=== PATIENT | female | born 1985 | race Caucasian/White ===

== ENCOUNTER 2020-12-02 16:58 | Inpatient (IN) | payer OTHER ==
[~2020-12-02] VITALS: Ht 175.3 cm; Wt 73.5 kg
[2020-12-02 17:34] LABS: HEMOGLOBIN 11.5 gm/dl (12.3-15.3); RED BLOOD COUNT 3.71 M/UL (4.00-5.10); WHITE BLOOD COUNT 7.8 K/UL (4.5-11.0)
[2020-12-03] MEDS ORDERED: SUBUTEX 8 MG TAB8 MG GT (07:42)
[2020-12-03] MEDS ORDERED: IBUPROFEN600 MG PO (12:22)
[2020-12-03] MEDS ORDERED: COLACE 100MG C100 MG PO (12:22)
== END 2020-12-05 12:04 | disposition home or self-care (01) | DRG 806 ==
LOC: GENOP 16:58 → OB 17:09
PROVIDERS: ADMIT Obstetrics & Gynecology
PROC: 0U7C7ZZ Dilation of Cervix, Via Natural or Artificial Opening (ICD-10-PCS; 2020-12-02)
PROC: 10E0XZZ Delivery of Products of Conception, External Approach (ICD-10-PCS; principal; 2020-12-03)
PROC: 3E033VJ Introduction of Other Hormone into Peripheral Vein, Percutaneous Approach (ICD-10-PCS; 2020-12-03)
PROC: 3E0234Z Introduction of Serum, Toxoid and Vaccine into Muscle, Percutaneous Approach (ICD-10-PCS; 2020-12-03)
DX: O13.4 Gestational [pregnancy-induced] hypertension without significant proteinuria, complicating childbirth (principal); F11.20 Opioid dependence, uncomplicated; Z37.0 Single live birth; O99.324 Drug use complicating childbirth; O99.334 Smoking (tobacco) complicating childbirth; F17.210 Nicotine dependence, cigarettes, uncomplicated; Z20.822 Contact with and (suspected) exposure to COVID-19; Z3A.39 39 weeks gestation of pregnancy; Z23 Encounter for immunization
CPT/HCPCS: 36415; 51702; 80307; 81001; 82800; 85014; 85018; 85025; 90471; 90715; J2405; J2590; J2795; J7120; U0003